=== PATIENT | female | born 1975 | race Caucasian/White ===

== ENCOUNTER 2017-04-14 07:50 | Outpatient (CLI) | payer OTHER | END 2017-04-14 07:51 | disposition home or self-care (01) | LOC: BICMAMMO 07:50 | PROVIDERS: ATTEND Family Medicine | DX: Z12.31 Encounter for screening mammogram for malignant neoplasm of breast (principal); R53.83 Other fatigue; M95.4 Acquired deformity of chest and rib; M41.9 Scoliosis, unspecified; Z80.3 Family history of malignant neoplasm of breast | CPT/HCPCS: 71046; 77063; 77067 ==